=== PATIENT | female | born 1940 | race Caucasian/White ===

== ENCOUNTER 2018-11-06 08:50 | Inpatient (IN) ==
--- NOTE | 2018-10-29 14:21 | Anesthesiology Consultation ---
Date of Service October 29, 2018 Assessment & Plan (1) Encounter for pre-operative examination: Chart Review Chart Review: Acceptable Risk for Surgery and Patient seen in Pre Admission Testing Teaching & Discussion Instructed NPO after midnight before surgery, except medications with 15 cc of water. Medication instructions provided according to the PAT guidelines. History Surgery Operation Date: 11/06/18 10:05 Proposed Procedures p L3-L5 Decompression and Fusion, Spinal Cord Monitoring - Solomon Terry DO Height/Weight Height: 5 ft 4.5 in Weight: 64.864 kg Allergies Allergy/AdvReac Type Severity Reaction Status Date / Time cefaclor Allergy Intermediate HIVES Verified 10/25/18 14:17 morphine Allergy Intermediate PROJECTILE Unverified 10/25/18 14:17 VOMITTING oxycodone Allergy Intermediate N/V Verified 10/25/18 14:17 Penicillins Allergy Intermediate SWELLING Verified 10/25/18 14:17 red dye Allergy Intermediate hives Verified 10/25/18 14:17 shellfish derived Allergy Intermediate Hives Verified 10/25/18 14:17 hydrocodone Allergy Mild N/V Verified 10/25/18 14:17 meperidine Allergy Unknown WAS TOLD Verified 10/25/18 14:17 NEVER TO TAKE IT FOOD ALLERGY Allergy Intermediate Hives Uncoded 10/25/18 14:17 MEDICAL GRADE GLUE Allergy Intermediate VEIN Uncoded 10/25/18 14:21 IRRITATION, RED/SWOLLEN Medications Home Medications Medication Instructions Recorded Confirmed Last Taken carisoprodol 250 mg PO BID 10/25/18 10/25/18 Unknown cetirizine [Zyrtec] 10 mg PO QAM 10/25/18 10/25/18 Unknown fluticasone propionate [Flonase 1 spray INTRANASAL DAILY 10/25/18 10/25/18 Unknown Allergy Relief] levothyroxine 25 mcg PO QAM 10/25/18 10/25/18 Unknown montelukast [Singulair] 10 mg PO PM 10/25/18 10/25/18 Unknown acetaminophen [Tylenol Extra 500 mg PO Q6H PRN 10/29/18 10/29/18 Unknown Strength] Past Medical History Medical History Environmental and seasonal allergies Hypothyroidism Osteoporosis Spinal stenosis Exercise / Class Metabolic Activity II 4-5 Yardwork/Stairs/Walk up hill (Denies CP or SOB with stairs but currently very limited by back pain (has been x 2 wks)) Past Family History Family History Grandmother (Paternal) Family history of diabetes mellitus Past Surgical History Surgical History H/O shoulder surgery RT History of appendectomy History of breast augmentation IMPLANTS REMOVAL AFTER RUPTURE History of cataract surgery RT/LEFT History of colonoscopy History of herniorrhaphy History of laparoscopy History of tooth extraction History of total abdominal hysterectomy and bilateral salpingo-oophorectomy History of total knee replacement RT Status post ablation of incompetent vein using laser 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 History of PONV No Hx of Motion Sickness and History of PONV (2/2 narcotics (see adverse reactions above)) Social History Smoking Status: Former smoker Do You Dip or Chew Tobacco: No Smoking End Date: QUIT 2004 Hx Alcohol Use: No Hx Substance Use: No substance use type: does not use Review of Systems Pt denies any recent chest pain, shortness of breath, palpitations, cough, fever or URI. Physical Exam Vital Signs BP: 104/58 P: 91bpm SPO2: 95% RA T: 97.9 F R: 16 ENMT Mouth: + dentures (partial lower) and + dental restorations (several caps and crowns); no chipped teeth and no loose teeth Thyromental Distance: < 3.5 Finger Breadths (3) Mallampati Class: I Neck normal visual inspection; neck extension not limited Respiratory normal respiratory effort Auscultation: lungs clear to auscultation bilaterally Cardiovascular Rate/Rhythm: regular rate and regular rhythm Heart Sounds: no murmur Vessels: no carotid bruit Extremities: no edema Testing Laboratory Results 10/29/18 14:30 10/29/18 14:30 10/29/18 10/29/18 10/29/18 14:30 14:30 14:30 PT 9.9 INR 1.0 APTT 26.2 Urine Color Yellow Urine Appearance Clear Urine pH 6.5 Ur Specific [place] 1.011 Urine Protein Negative Urine Glucose (UA) Negative Urine Ketones Negative Urine Nitrite Negative Ur Leukocyte Esterase Negative Blood Type O Positive Antibody Screen NEGATIVE Electrocardiogram Date: 10/29/18 Findings: + NSR @ (77) Low voltage QRS. Nonspecific T wave abnormality. No significant change from 01/12/10. Chest X-Ray Date: 10/29/18 Findings: + NAD
--- NOTE | 2018-10-29 14:23 | PAT Medication Instructions ---
Medication Instructions Date of Service October 29, 2018 Home Medications carisoprodol 250 mg PO BID cetirizine [Zyrtec] 10 mg PO QAM fluticasone propionate [Flonase Allergy Relief] 1 spray INTRANASAL DAILY levothyroxine 25 mcg PO QAM montelukast [Singulair] 10 mg PO PM acetaminophen [Tylenol Extra Strength] 500 mg PO Q6H PRN DO NOT take the morning of surgery cetirizine [Zyrtec] 10 mg PO QAM Take morning of surgery With a small sip of water, OTHERWISE NOTHING TO EAT OR DRINK AFTER MIDNIGHT: carisoprodol 250 mg PO BID fluticasone propionate [Flonase Allergy Relief] 1 spray INTRANASAL DAILY levothyroxine 25 mcg PO QAM acetaminophen [Tylenol Extra Strength] 500 mg PO Q6H PRN (if needed, may be taken up to four hours before surgery) Take evening before surgery carisoprodol 250 mg PO BID montelukast [Singulair] 10 mg PO PM acetaminophen [Tylenol Extra Strength] 500 mg PO Q6H PRN (if needed) Other Notes If you have any questions please call us at [phone] or [phone] or [phone] or [phone]
--- NOTE | 2018-10-29 15:02 | XRay Report ---
XR chest Pre-admission PA/Lat HISTORY: Preop. COMPARISON: None. FINDINGS: The lungs are clear. Cardiac silhouette is normal in size. No pleural effusions. No pneumot horax. Old, healed sternal fracture. IMPRESSION: No acute process. Electronically signed by: Almas Pop M.D. 10/29/2018 3:01 PM
[2018-10-29 15:12] LABS: Basophils # (auto) 0.04 K/uL (0-0.2); Basophils % (auto) 0.6 %; Eosinophils # (auto) 0.15 K/uL (0-0.5); Eosinophils % (auto) 2.3 %; Hematocrit (blood only) 38.4 % (37-47); Hemoglobin 13.1 g/dL (12.0-16.0); Immature Granulocytes # (auto) 0.01 K/uL (0.00-0.02); Immature Granulocytes % (auto) 0.2 %; Lymphocytes # (auto) 2.73 K/uL (1.2-3.4); Lymphocytes % (auto) 42.5 %; Mean Corpuscular Hgb Conc 34.1 g/dL (32-36); Mean Corpuscular Volume 89.9 fL (80-100); Mean Platelet Volume 8.1 fL (7.4-10.4); Monocytes # (auto) 0.53 K/uL (0.11-0.59); Monocytes % (auto) 8.3 %; Neutrophils # (auto) 2.96 K/uL (1.4-6.5); Neutrophils % (auto) 46.1 %; Platelet Count 264 K/uL (130-400); RDW Coefficient of Variation 12.8 % (11.5-14.5); RDW Standard Deviation 41.8 fL (36.4-46.3); Red Blood Count 4.27 M/uL (4.2-5.4); White Blood Count 6.42 K/uL (4.8-10.8)
[2018-10-29 15:16] LABS: Appearance Urine Clear (Clear); Bilirubin Urine Negative (Negative); Blood Urine Negative (Negative); Color Urine Yellow; Glucose Urine UA Negative (Negative); Ketones Urine Negative (Negative); Leukocyte Esterase Urine Negative (Negative); Nitrite Urine Negative (Negative); Protein Urine Negative (Negative); Specific Gravity Urine 1.011 (1.000-1.030); Urobilinogen Urine Negative (Negative); pH Urine 6.5 (4.5-7.5)
[2018-10-29 15:25] LABS: Partial Thromboplastin Time 26.2 Seconds (21.0-31.0); Prothrombin Time 9.9 Seconds (9.0-12.0)
[2018-10-29 16:41] LABS: Potassium 3.7 mmol/L (3.5-5.1)
[2018-10-29 16:42] LABS: BUN Creatinine Ratio 9.2 (10-20); Calcium 8.9 mg/dl (8.5-10.1); Creatinine Clr Calc Pharmacy 40.9 ml/min; Est GFR (African American) 62.5; Est GFR (Non-African American) 53.9
[~2018-11-06 08:50] MED LIST: ACETAMINOPHEN 500 MG TAB PO SCH; CLINDAMYCIN 600 MG/54 ML BAG IV SCH; GABAPENTIN 300 MG PO SCH; HYDROmorphone INJ 2 MG/ML SYR/VIAL ONE; LR 15ML/HR IV SCH; MIDAZOLAM HCL 1 MG/ML 2ML VIAL ONE; fentaNYL citrate 100 MCG/2 ML VIAL ONE
[2018-11-06] MEDS ORDERED: HYDROmorphone INJ 1 MG/ML SYRINGE IV PRN (10:05)
[2018-11-06] MEDS ORDERED: ePHEDrine sulfate 50 MG/ML AMP IV PRN (10:05)
[2018-11-06] MEDS ORDERED: ONDANSETRON INJ 2 MG/ML 2 ML VIAL IV PRN (10:05)
[2018-11-06] MEDS ORDERED: ATROPINE SULFATE 0.1 MG/ML 10ML SYR IV PRN (10:05)
[2018-11-06] MEDS ORDERED: fentaNYL citrate 100 MCG/2 ML VIAL IV PRN (10:05)
--- NOTE | 2018-11-06 10:09 | History & Physical Bridge Note ---
Date of Service November 06, 2018 History & Physical Bridge Note I have examined the patient, reviewed the History & Physical and in the interval since the performance of the History & Physical I have noted the following changes of clinical significance: no changes noted
--- NOTE | 2018-11-06 10:10 | History & Physical Report ---
Date of Service November 06, 2018 Assessment & Plan (1) Spinal stenosis, lumbar region with neurogenic claudication: L3-L5 decompression and fusion Present on Admission?: Yes History of Present Illness Chief Complaint: Back and bilateral leg pain Primary Care Provider: Kennedy Messina This is a 78-year-old female who presents with worsening back and bilateral leg pain failing extensive course of nonoperative care she is here for surgical intervention. Allergies Allergy/AdvReac Type Severity Reaction Status Date / Time cefaclor Allergy Intermediate HIVES Verified 11/06/18 09:17 Penicillins Allergy Intermediate SWELLING Verified 11/06/18 09:17 red dye Allergy Intermediate hives Verified 11/06/18 09:17 shellfish derived Allergy Intermediate Hives Verified 11/06/18 09:17 hydrocodone Allergy Mild N/V Verified 11/06/18 09:17 meperidine Allergy Unknown WAS TOLD Verified 11/06/18 09:17 NEVER TO TAKE IT apple Allergy Hives Verified 11/06/18 09:17 broccoli Allergy Hives Verified 11/06/18 09:17 grape Allergy Hives Verified 11/06/18 09:17 morphine AdvReac Intermediate PROJECTILE Verified 11/06/18 09:25 VOMITTING oxycodone AdvReac Intermediate N/V Verified 11/06/18 09:17 MEDICAL GRADE GLUE Allergy Intermediate VEIN Uncoded 11/06/18 09:17 IRRITATION, RED/SWOLLEN mesquite trees Allergy Intermediate Unknown Uncoded 11/06/18 09:17 Home Medications Home Medications Medication Instructions Recorded Confirmed Type carisoprodol 250 mg PO BID 10/25/18 11/06/18 History cetirizine [Zyrtec] 10 mg PO QAM 10/25/18 11/06/18 History fluticasone propionate [Flonase 1 spray INTRANASAL DAILY 10/25/18 11/06/18 History Allergy Relief] levothyroxine 25 mcg PO QAM 10/25/18 11/06/18 History montelukast [Singulair] 10 mg PO PM 10/25/18 11/06/18 History acetaminophen [Tylenol Extra 500 mg PO Q6H PRN 10/29/18 11/06/18 History Strength] docusate sodium [Stool Softener] 100 mg PO DAILY PRN 11/06/18 11/06/18 History Past Med/Surg History Medical History Environmental and seasonal allergies Hypothyroidism Osteoporosis Spinal stenosis Surgical History H/O shoulder surgery RT History of appendectomy History of breast augmentation IMPLANTS REMOVAL AFTER RUPTURE History of cataract surgery RT/LEFT History of colonoscopy History of herniorrhaphy History of laparoscopy History of tooth extraction History of total abdominal hysterectomy and bilateral salpingo-oophorectomy History of total knee replacement RT Status post ablation of incompetent vein using laser 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 Family History Grandmother (Paternal) Family history of diabetes mellitus Social History Preferred Language: Italian Communication Ability: Effective Meal Room Hand Required: No Beliefs That Will Affect Care: None Current Living Situation: Spouse Other Information That Helps Us Care for You: No Feels Safe at Home: Yes Safety Concerns: Feels Safe At This Time Smoking Status: Former smoker Do You Dip or Chew Tobacco: No Smoking End Date: QUIT 2004 Second Hand Exposure: No Tobacco Cessation Education Requested by Patient: No Hx Alcohol Use: No Hx Substance Use: No Physical Exam Physical Exam: Patient is alert and oriented neurologically intact Results & Data Vital Signs (Past 12 Hours) Vital Signs Temp Pulse Resp BP Pulse Ox 11/06/18 09:21 36.7 C 82 18 155/83 H 96
[2018-11-06] MEDS ORDERED: ONDANSETRON INJ 2 MG/ML 2 ML VIAL ONE ×2 (10:25→11:21)
[2018-11-06] MEDS ORDERED: ROCURONIUM BROMIDE 10 MG/ML 5 ML VIAL ONE (10:25)
[2018-11-06] MEDS ORDERED: LIDOCAINE HCL 2% 2 ML VIAL/AMP(20MG/ML) INFIL ONE (10:25)
[2018-11-06] MEDS ORDERED: GLYCOPYRROLATE 0.2 MG/ML VIAL ONE (10:25)
[2018-11-06] MEDS ORDERED: PROPOFOL IV EMULSION 10 MG/ML 20 ML VIAL IV ONE (10:25)
[2018-11-06] MEDS ORDERED: NEOSTIGMINE METHYLSULFATE 1 MG/ML 10ML VIAL ONE (10:25)
[2018-11-06] MEDS ORDERED: DEXAMETHASONE SOD INJ 4 MG/ML VIAL ONE (10:25)
[2018-11-06] MEDS ORDERED: HYDROmorphone INJ 2 MG/ML SYR/VIAL ONE (10:26)
[2018-11-06] MEDS ORDERED: BUPIVACAINE/EPINEPHRINE 0.5% MPF 1:200,000 30 ML VIAL ONE (10:26)
[2018-11-06] MEDS ORDERED: BACITRACIN INJ 50,000 UNIT VIAL ONE (10:27)
[2018-11-06] MEDS ORDERED: fentaNYL citrate 100 MCG/2 ML VIAL ONE ×3 (10:59→11:47)
[2018-11-06] MEDS ORDERED: PHENYLEPHRINE 100MCG/ML 5ML SYR ONE (11:20)
[2018-11-06] MEDS ORDERED: raNITIdine HCl 25 MG/ML VIAL IV ONE (11:21)
[2018-11-06] MEDS ORDERED: METOCLOPRAMIDE HCL INJ 5 MG/ML 2 ML VIAL ONE (11:21)
[2018-11-06] MEDS ORDERED: FLOSEAL HEMOSTATIC MATRIX 10ML TOP ONE (12:27)
--- NOTE | 2018-11-06 12:34 | Operative Report ---
Post Operative Report Pre & Post Diagnosis Operation Date: 11/06/18 10:25 Pre-Op Diagnosis: L3-L5 spinal stenosis, lumbar region with neurogenic claudication Post-Op Diagnosis: L3-L5 spinal stenosis, lumbar region with neurogenic claudication Procedure Operation Date: 11/06/18 10:25 Actual Procedures #1 lumbar decompression with bilateral medial facetectomies foraminotomies L3-4 L4-5. #2 posterior spinal fusion L3-4 L4-5 per #3 placement posterior instrumentation L3-4 L4-5 using globus. #4 interbody fusion L4-5 per #5 placement of peek cage 9 x 22 mm L4-5. #6 placement of local autograft in the posterior lateral gutters per #7 placement Feese collagen sponge combined with master graft in the posterior lateral gutters and ostial amp and interbody space. Surgeon Solomon Terry DO Twister Tender Paper Karla Moralez Estimated Blood Loss 175 Findings Consistent with Post-Op Diagnosis Specimens None Indications This is a 78-year-old female presents with back and bilateral leg pain. After failing extensive course of nonoperative care she is here for surgical intervention. Description of Procedure Patient was met with identified and informed consent obtained. She was then taken to the operative suite underwent intubation placed in the prominences well-padded eyes inspected to ensure no external pressure placed upon the. This point the lumbar spine is prepped and draped in a normal sterile fashion. Sharp dissection with the assistance of Bovie cautery was performed down to and exp osing the lamina transverse processes of L3-L4-L5 bilaterally. From a caudal cephalad fashion complete laminectomy of L4 and L3 was performed including bilateral medial facetectomies and foraminotomies addressing severe spinal stenosis. Pedicle fusion and placed in L3-L4-L5 bilaterally with assistance of fluoroscopy the appropriate size josie placed. By way of a transforaminal approach on the right complete discectomy was performed in plate graded to subcortical mean bone and a 9 x 22 mm peek cage filled with ostium bone graft tapped in position. The rods were then locked in final position bilaterally. The transverse processes of L3 L4-5 bur to subcortical bleeding bone. Infuse collagen sponge mass graft local autograft placed in the posterior lateral gutters. 15 round JESSE drain inserted. Incision was then closed with 1 Vicryl in the fascia 2-0 Vicryl subcutaneous layer and 4 Monocryl for final skin closure. Steri-Strip sterile dressings placed. Patient will continue PACU stable condition. Please note Karla Moralez present at the entire procedure involved the patient positioning complex portions of the surgery and final skin closure. Lastly spinal cord monitoring was utilized as noted. I attest to the content of the Intraoperative Record and any orders documented therein. Any exceptions are noted below.
--- NOTE | 2018-11-06 12:37 | Fluoroscopy Report ---
FL lumbar spine 2-3V HISTORY: 78 years-old Female L3-L5 D/F status post fusion of the lumbar spine COMPARISON: None available TECHNIQUE: 2 spot fluoroscopic images of the lumbar spine were obtained utilizing 17.1 seconds fluoro scopy time FINDINGS: Laminectomy with posterior interbody josie and screw fusion noted at L3-L5 with discectomy changes at L 4-L5. Alignment appears satisfactory and the hardware appears intact. Multilevel disc space narrowing with spondylitic spurring. IMPRESSION: Fluoroscopic assistance as above. Please see operative report for further details. The above report was generated using voice recognition software. It may contain grammatical, syntax o r spelling errors. Electronically signed by: Chi Butler M.D. 11/06/2018 12:36 PM
--- NOTE | 2018-11-06 13:36 | Anesthesiology Progress Note ---
Date of Service November 06, 2018 Anesthesia Post Procedure Vital Signs Vital Signs: Temp Pulse Pulse Resp BP Pulse Ox 11/06/18 13:20 65 12 136/59 L 96 11/06/18 13:10 70 11 L 136/75 97 11/06/18 13:00 79 13 135/72 96 11/06/18 12:50 36.6 C 74 12 152/98 H 97 11/06/18 09:21 36.7 C 82 18 155/83 H 96 Transfer of Care Handoff Completed per policy Notes Mental Status: alert / awake / arousable and participated in evaluation Patient Amnestic to Procedure: Yes Nausea / Vomiting: adequately controlled Pain: adequately controlled Airway Patency, RR, SpO2: stable & adequate BP & HR: stable & adequate Hydration State: stable & adequate Anesthetic Complications: no major complications apparent and Pt Satisfied with anesthetic care
[2018-11-06] MEDS ORDERED: FAMOTIDINE 20 MG TAB PO PRN (14:32)
[2018-11-06] MEDS ORDERED: DO NOT ADMINISTER PNEUMOCOCCAL VACCINE PRN (14:32)
[2018-11-06] MEDS ORDERED: ALUMINUM/MAGNESIUM SUSP 30 ML UDC PO PRN (14:32)
[2018-11-06] MEDS ORDERED: BISACODYL 10 MG SUPP PR PRN (14:32)
[2018-11-06] MEDS ORDERED: ACETAMINOPHEN 1,000 MG/100 ML VIAL IV PRN (14:32)
[2018-11-06] MEDS ORDERED: DO NOT ADMINISTER FLU VACCINE PRN (14:32)
[2018-11-06] MEDS ORDERED: HYDROmorphone INJ 0.5 MG/0.5 ML SYR IV PRN (14:32)
[2018-11-06] MEDS ORDERED: METOCLOPRAMIDE HCL INJ 5 MG/ML 2 ML VIAL IV PRN (14:32)
[2018-11-06] MEDS ORDERED: LORazepam 0.5 MG/1 ML VIAL IV PRN (14:32)
[2018-11-06] MEDS ORDERED: LORazepam 0.5 MG TAB PO PRN (14:32)
[2018-11-06] MEDS ORDERED: DOCUSATE SODIUM 100 MG CAP PO PRN (14:32)
[2018-11-06] MEDS ORDERED: PROMETHAZINE HCL 12.5 MG in SODIUM CHLORIDE 0.9% 50 ML IV PRN (14:32)
[2018-11-06] MEDS ORDERED: MAGNESIUM HYDROXIDE SUSP 30 ML UDC PO PRN (14:32)
[2018-11-06] MEDS ORDERED: ACETAMINOPHEN 500 MG TAB PO PRN (14:32)
[2018-11-06] MEDS ORDERED: SOD PHOSPHATE/SOD BIPHOSPHATE ENEMA 132 ML BTL PR PRN (14:32)
[2018-11-06] MEDS ORDERED: ONDANSETRON 4 MG TAB PO PRN (14:32)
--- NOTE | 2018-11-06 15:47 | Consultation ---
Date of Consultation November 06, 2018 Assessment & Plan (1) Status post lumbar surgery: Post op day# 0 S/P L3-L5 decompression & fusion by Dr Terry Post op pain controlled EBL#175 ml -pain management per ortho -wound management per ortho -PT/OT as appropriate -DVT prophylaxis per ortho -incentive spirometry -monitor H&H for acute blood loss anemia (2) Hypothyroidism: -Continue levothyroxine (3) Environmental and seasonal allergies: -Continue Singulair, Zyrtec DVT Prophylaxis -SCDs per ortho Full Code as per discussion with pt Follows with Dr Kennedy Messina for routine care Pt was seen and care coordinated with Dr Castro. See addendum Pt will be followed by Dr Aguilar starting 11/07/18 Thank you for this consultation. We will follow the patient with you during their hospital stay. You can reach a member of the [facility] Hospitalist Team 18/12 via pager @ [phone]. Supervising Physician Co-Signing Physician Notes Patient is a 78-year-old female with history of hypothyroidism, spinal stenosis, Seasonal allergies and other problems who underwent L3-L5 decompression fusion by Dr. Terry was seen and examined postop. Patient had an episode of vomiting postop. Reports associated dizziness during the episode of vomiting which currently resolved. Denies any aspiration. Currently doing well. Denies any chest pain, shortness of breath, abdominal pain, cough. Back pain at surgical site is controlled. On exam patient is moderately built and nourished, no apparent distress, normocephalic atraumatic, lungs are clear to auscultation, S1-S2, no murmur, back-surgical site in dressing,+ drain, no pedal edema, grossly no focal neurological deficits. Monitor for postop anemia. DVT prophylaxis, wound care and activity as per primary team. Bowel regimen to prevent constipation. I personally reviewed the record. Patient is interviewed and examined at bedside. Patient's care is coordinated with Shaina Nino PA-C. Please refer to the documentation above for details of patient's presentation and for discussion of other issues. History of Present Illness Reason for Consultation: Postop medical management Attending Physician: Solomon Terry DO History of Present Illness Pt is 78 y/o F with PMH hypothyroidism, allergic rhinitis, osteoporosis, spinal stenosis seen in medical consultation S/P L3-L5 decompression and fusion today by Dr. Terry. Post op pt reports fatigue. Denies any pain currently. Denies leg paresthesias. Has Davis cath in place. Denies N/V. Reports BM this am prior to procedure, hasn't felt like had flatus yet post op. Denies fever/chills, diaphoresis, YOUNG, dizziness, vision changes, neck pain, CP, SOB, orthopnea, palpitations, cough, sore throat, choking, abdominal pain, paresthesias. Allergies Allergy/AdvReac Type Severity Reaction Status Date / Time cefaclor Allergy Intermediate HIVES Verified 11/06/18 09:17 Penicillins Allergy Intermediate SWELLING Verified 11/06/18 09:17 red dye Allergy Intermediate hives Verified 11/06/18 09:17 shellfish derived Allergy Intermediate Hives Verified 11/06/18 09:17 hydrocodone Allergy Mild N/V Verified 11/06/18 09:17 meperidine Allergy Unknown WAS TOLD Verified 11/06/18 09:17 NEVER TO TAKE IT apple Allergy Hives Verified 11/06/18 09:17 broccoli Allergy Hives Verified 11/06/18 09:17 grape Allergy Hives Verified 11/06/18 09:17 morphine AdvReac Intermediate PROJECTILE Verified 11/06/18 09:25 VOMITTING oxycodone AdvReac Intermediate N/V Verified 11/06/18 09:17 MEDICAL GRADE GLUE Allergy Intermediate VEIN Uncoded 11/06/18 09:17 IRRITATION, RED/SWOLLEN mesquite trees Allergy Intermediate Unknown Uncoded 11/06/18 09:17 Home Medications Home Medications Medication Instructions Recorded Confirmed Type carisoprodol 250 mg PO BID 10/25/18 11/06/18 History cetirizine [Zyrtec] 10 mg PO QAM 10/25/18 11/06/18 History fluticasone propionate [Flonase 1 spray INTRANASAL DAILY 10/25/18 11/06/18 History Allergy Relief] levothyroxine 25 mcg PO QAM 10/25/18 11/06/18 History montelukast [Singulair] 10 mg PO PM 10/25/18 11/06/18 History acetaminophen [Tylenol Extra 500 mg PO Q6H PRN 10/29/18 11/06/18 History Strength] docusate sodium [Stool Softener] 100 mg PO DAILY PRN 11/06/18 11/06/18 History Patient History Medical History Environmental and seasonal allergies (Chronic) Hypothyroidism (Chronic) Osteoporosis (Chronic) Spinal stenosis (Chronic) Surgical History History of cataract surgery (Chronic) RT/LEFT History of tooth extraction (Chronic) History of appendectomy (Chronic) History of laparoscopy (Chronic) History of total abdominal hysterectomy and bilateral salpingo-oophorectomy (Chronic) History of herniorrhaphy (Chronic) History of colonoscopy (Chronic) History of total knee replacement (Chronic) RT H/O shoulder surgery (Chronic) RT History of breast augmentation (Chronic) IMPLANTS REMOVAL AFTER RUPTURE Status post ablation of incompetent vein using laser (Chronic) 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 Family History Grandmother (Paternal) Family history of diabetes mellitus Social History Preferred Language: Azeri Communication Ability: Effective Inspector Missile Required: No Beliefs That Will Affect Care: None Current Living Situation: Spouse Other Information That Helps Us Care for You: No Feels Safe at Home: Yes Safety Concerns: Feels Safe At This Time Smoking Status: Former smoker Do You Dip or Chew Tobacco: No Smoking End Date: QUIT 2004 Second Hand Exposure: No Tobacco Cessation Education Requested by Patient: No Hx Alcohol Use: No Hx Substance Use: No Review of Systems Review of Systems: All systems reviewed & are unremarkable except as noted in HPI & below Physical Exam Physical Exam: General: no acute distress, Pt sleepy, WDWN Head: normocephalic, atraumatic Eyes: EOM's intact, conjunctiva non-injected, anicteric ENT: normal inspection external ears, nose, mucous membranes moist Neck: supple, trachea midline Lungs: clear, no respiratory distress CV: RRR, no murmur, no pretibial edema Abd: normal BS, soft, non-tender Ext: no cyanosis, no calf tenderness; bilateral pedal pulls and pushes intact, distal pulses intact, sensation to light touch intact Neuro: A&O x 3, no focal deficits noted, normal affect Skin: warm, dry Results & Data Vital Signs (Past 12 Hours) Vital Signs Temp Pulse Pulse Pulse Resp BP Pulse Ox 11/06/18 15:19 35.8 C L 66 16 107/69 93 11/06/18 14:39 58 L 18 124/74 93 11/06/18 14:10 36.4 C L 75 18 135/81 93 11/06/18 13:40 36.1 C L 63 14 119/61 95 11/06/18 13:30 36.1 C L 65 12 137/63 94 11/06/18 13:20 65 12 136/59 L 96 11/06/18 13:10 70 11 L 136/75 97 11/06/18 13:00 79 13 135/72 96 11/06/18 12:50 36.6 C 74 12 152/98 H 97 11/06/18 09:21 36.7 C 82 18 155/83 H 96
[2018-11-06] MEDS: ONDANSETRON INJ 2 MG/ML 2 ML VIAL IV PRN (16:17)
[2018-11-06] MEDS: CLINDAMYCIN 600 MG in DEXTROSE 5% 50 ML IV SCH (17:36)
[2018-11-06] MEDS: LACTATED RINGER'S 1,000 ML IV SCH (17:36)
[2018-11-06] MEDS: DOCUSATE SODIUM/SENNA 50/8.6MG TAB PO SCH (20:03)
[2018-11-06] MEDS: MONTELUKAST SODIUM 10 MG TABLET PO SCH (20:03)
[2018-11-07] MEDS: CLINDAMYCIN 600 MG in DEXTROSE 5% 50 ML IV SCH (01:37)
[2018-11-07] MEDS: POLYETHYLENE (MIRALAX) 17 GM PACK PO SCH ×3 (05:51→18:33)
[2018-11-07] MEDS: LEVOTHYROXINE SODIUM 25 MCG TABLET PO SCH (05:52)
[2018-11-07] MEDS: LACTATED RINGER'S 1,000 ML IV SCH (05:55)
[2018-11-07] MEDS: ACETAMINOPHEN 500 MG TAB PO PRN ×2 (06:22→20:10)
[2018-11-07 06:42] LABS: Basophils # (auto) 0.01 K/uL (0-0.2); Basophils % (auto) 0.1 %; Hematocrit (blood only) 31.7 % (37-47); Hemoglobin 10.9 g/dL (12.0-16.0); Immature Granulocytes # (auto) 0.05 K/uL (0.00-0.02); Immature Granulocytes % (auto) 0.3 %; Lymphocytes # (auto) 2.31 K/uL (1.2-3.4); Lymphocytes % (auto) 13.8 %; Mean Corpuscular Hgb Conc 34.4 g/dL (32-36); Mean Corpuscular Volume 90.1 fL (80-100); Monocytes # (auto) 1.52 K/uL (0.11-0.59); Monocytes % (auto) 9.1 %; Neutrophils # (auto) 12.84 K/uL (1.4-6.5); Neutrophils % (auto) 76.7 %; Platelet Count 223 K/uL (130-400); RDW Coefficient of Variation 13.4 % (11.5-14.5); RDW Standard Deviation 44.2 fL (36.4-46.3); Red Blood Count 3.52 M/uL (4.2-5.4); White Blood Count 16.73 K/uL (4.8-10.8)
[2018-11-07 07:17] LABS: BUN Creatinine Ratio 13.6 (10-20); Calcium 8.6 mg/dl (8.5-10.1); Creatinine Clr Calc Pharmacy 50.9 ml/min; Est GFR (Non-African American) 63.8; Potassium 4.1 mmol/L (3.5-5.1)
--- NOTE | 2018-11-07 08:07 | Anesthesiology Progress Note ---
Date of Service November 07, 2018 Anesthesia Post Procedure Vital Signs Vital Signs: Temp Pulse Pulse Pulse Pulse Resp BP 11/07/18 02:43 36.9 C 98 H 16 114/70 11/06/18 23:32 36.5 C 90 16 127/70 11/06/18 22:41 106 H 11/06/18 22:25 36.4 C L 100 H 20 136/80 11/06/18 19:26 36.3 C L 88 16 113/71 11/06/18 17:27 36.2 C L 83 16 116/76 11/06/18 16:25 36.3 C L 88 16 149/80 H 11/06/18 15:19 35.8 C L 66 16 107/69 11/06/18 14:39 58 L 18 124/74 11/06/18 14:10 36.4 C L 75 18 135/81 11/06/18 13:40 36.1 C L 63 14 119/61 11/06/18 13:30 36.1 C L 65 12 137/63 11/06/18 13:20 65 12 136/59 L 11/06/18 13:10 70 11 L 136/75 11/06/18 13:00 79 13 135/72 11/06/18 12:50 36.6 C 74 12 152/98 H 11/06/18 09:21 36.7 C 82 18 155/83 H Pulse Ox 11/07/18 02:43 92 11/06/18 23:32 94 11/06/18 22:41 94 11/06/18 22:25 93 11/06/18 19:26 96 11/06/18 17:27 94 11/06/18 16:25 95 11/06/18 15:19 93 11/06/18 14:39 93 11/06/18 14:10 93 11/06/18 13:40 95 11/06/18 13:30 94 11/06/18 13:20 96 11/06/18 13:10 97 11/06/18 13:00 96 11/06/18 12:50 97 11/06/18 09:21 96 Notes Mental Status: alert / awake / arousable and participated in evaluation Patient Amnestic to Procedure: Yes Nausea / Vomiting: adequately controlled Pain: adequately controlled Airway Patency, RR, SpO2: stable & adequate BP & HR: stable & adequate Hydration State: stable & adequate Anesthetic Complications: no major complications apparent and Pt Satisfied with anesthetic care
--- NOTE | 2018-11-07 08:08 | Orthopedic Progress Note ---
Date of Service November 07, 2018 Assessment & Plan (1) Spinal stenosis, lumbar region with neurogenic claudication: This time we will advance physical therapy today. Monitor JESSE output. Anticipate discharge home this weekend. Present on Admission?: Yes Subjective Patient's leg pain is improved. Back pain controlled. Physical Exam Physical Exam: On exam she is out of bed in a chair she is good strength testing. Results & Data Vital Signs (Past 12 Hours) Vital Signs Temp Pulse Pulse Resp BP Pulse Ox 11/07/18 02:43 36.9 C 98 H 16 114/70 92 11/06/18 23:32 36.5 C 90 16 127/70 94 11/06/18 22:41 106 H 94 11/06/18 22:25 36.4 C L 100 H 20 136/80 93
[2018-11-07] MEDS: TRAMADOL HCL 50 MG TABLET PO PRN ×4 (08:45→20:09)
[2018-11-07] MEDS: CETIRIZINE HCL 10 MG TABLET PO SCH (08:45)
[2018-11-07] MEDS: ONDANSETRON INJ 2 MG/ML 2 ML VIAL IV PRN (08:46)
[2018-11-07] MEDS: FLUTICASONE PROPIONATE NA SPR 16 GM BTL SCH (09:19)
--- NOTE | 2018-11-07 12:27 | Hospitalist Progress Note ---
Date of Service November 07, 2018 Assessment & Plan (1) Status post lumbar surgery: Post op day#1 S/P L3-L5 decompression & fusion by Dr Terry Post op pain controlled EBL#175 ml. JESSE drain of 185 mL to date -pain management per ortho -wound management per ortho -continue PT/OT -DVT prophylaxis per ortho -incentive spirometry -Post-op hgb 10.9 (pre-op 13.1). Continue to monitor (2) Hypothyroidism: Continue levothyroxine (3) Environmental and seasonal allergies: Continue Singulair, Zyrtec DVT Prophylaxis -SCDs per ortho Full Code as per discussion with pt Follows with Dr Kennedy Messina for routine care Pt was seen and care coordinated with Dr. Aguilar. See addendum Thank you for this consultation. We will follow the patient with you during their hospital stay. You can reach a member of the [facility] Hospitalist Team 18/12 via pager @ [phone]. 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 #2 posterior spinal fusion L3-4 L4-5 per #3 placement posterior instrumentation L3-4 L4-5 using globus. #4 interbody fusion L4-5 per #5 placement of peek cage 9 x 22 mm L4-5. #6 placement of local autograft in the posterior lateral gutters per #7 placement Feese collagen sponge combined with master graft in the posterior lateral gutters and ostial amp and interbody space.) Patient on exam sitting up in chair playing cards with her denies bowel movement since the procedure has been having issues keeping down food General: no acute distress Lungs: clear to ascultation bilaterally Heart: regular rate and rhythm Abdomen: soft, nontender, positive bowel sounds Extremities: no edema Back: has JESSE drain with serosanguinous fluid. At this time will continue current pain medications ad antiemetics. expect that patient will have bowel movement eventually but may increase bowel regimen to prevent ileus Continue medical recommendations and plans as documented by hospitalist physician academic affairs assistant. orthopedic team is the primary medical team for the patient Subjective Patient seen and examined while in bedside chair. Feels well today and was able to participate in therapy ambulating in the halls with walker. Denies any surgical site pain or numbness in lower extremities. [place] nauseated last evening and had vomiting episode. Tolerated a small breakfast today, is receiving Zofran PRN. No vomiting today. + Flatus but no BM yet. Denies fever, chills, lightheadedness, headache, chest pain, shortness of breath, abdominal pain, dysuria or lower extremity swelling. Review of Systems Review of Systems: At least ten systems reviewed and negative except as noted in the HPI. Physical Exam Physical Exam: General Appearance: WD/WN, no apparent distress, resting comfortably in bedside chair Head: normocephalic, atraumatic Eyes: normal inspection, PERRL, EOMI ENT: hearing grossly normal, pharynx normal (moist mucous membranes) Neck: supple, no JVD, no adenopathy Respiratory/Chest: lungs clear to auscultation. No wheezes, rales or rhonci. No respiratory distress or accessory muscle use Cardiovascular: regular rate, rhythm, no murmur, normal peripheral pulses Abdomen/GI: normal bowel sounds, soft, non-tender to palpation : Davis catheter in place draining pale yellow urine Extremities/Musculoskelatal: Lumbosacral dressing clean, dry, intact. JESSE drain visualized. No calf tenderness, normal capillary refill, no pedal edema Neurologic/Psych: alert, normal mood/affect, oriented x 3 Skin: normal color, warm/dry Results & Data Vital Signs (Past 12 Hours) Vital Signs Temp Pulse Resp BP Pulse Ox 11/07/18 11:06 36.5 C 87 18 105/63 94 11/07/18 06:50 36.7 C 94 H 18 118/71 94 11/07/18 02:43 36.9 C 98 H 16 114/70 92 Laboratory Results Short CBC 11/07/18 Range/Units 06:14 WBC 16.73 H (4.8-10.8) K/uL Hgb 10.9 L (12.0-16.0) g/dL Hct 31.7 L (37-47) % Plt Count 223 (130-400) K/uL [facility] 11/07/18 06:14 Sodium 138 Potassium 4.1 Chloride 106 Carbon Dioxide 27 BUN 12 Creatinine 0.87 Glucose 121 H Calcium 8.6
[2018-11-07] MEDS ORDERED: LACTULOSE SYRUP 30 GM/45 ML UDP PO STA (14:48)
[2018-11-07] MEDS: DOCUSATE SODIUM/SENNA 50/8.6MG TAB PO SCH (20:09)
[2018-11-07] MEDS: MONTELUKAST SODIUM 10 MG TABLET PO SCH (20:09)
[2018-11-08] MEDS: POLYETHYLENE (MIRALAX) 17 GM PACK PO SCH ×4 (00:40→17:52)
[2018-11-08] MEDS: TRAMADOL HCL 50 MG TABLET PO PRN ×5 (00:45→23:21)
[2018-11-08 05:47] LABS: Hematocrit (blood only) 30.6 % (37-47); Hemoglobin 10.2 g/dL (12.0-16.0); Mean Corpuscular Hgb Conc 33.3 g/dL (32-36); Mean Corpuscular Volume 91.3 fL (80-100); Mean Platelet Volume 8.2 fL (7.4-10.4); Platelet Count 180 K/uL (130-400); RDW Coefficient of Variation 13.8 % (11.5-14.5); RDW Standard Deviation 45.6 fL (36.4-46.3); Red Blood Count 3.35 M/uL (4.2-5.4); White Blood Count 11.67 K/uL (4.8-10.8)
[2018-11-08 06:31] LABS: BUN Creatinine Ratio 16.6 (10-20); Calcium 8.5 mg/dl (8.5-10.1); Creatinine Clr Calc Pharmacy 58.3 ml/min; Est GFR (African American) 87.1; Est GFR (Non-African American) 75.1; Potassium 3.8 mmol/L (3.5-5.1)
[2018-11-08] MEDS: LEVOTHYROXINE SODIUM 25 MCG TABLET PO SCH (06:37)
[2018-11-08] MEDS: ACETAMINOPHEN 500 MG TAB PO PRN ×3 (06:41→23:21)
[2018-11-08] MEDS: FLUTICASONE PROPIONATE NA SPR 16 GM BTL SCH (08:28)
[2018-11-08] MEDS: CETIRIZINE HCL 10 MG TABLET PO SCH (08:28)
--- NOTE | 2018-11-08 14:06 | Orthopedic Progress Note ---
Date of Service November 08, 2018 Assessment & Plan (1) Spinal stenosis, lumbar region with neurogenic claudication: At this time we will continue physical therapy monitor her JESSE output anticipate discharge home this weekend. Present on Admission?: Yes Subjective Back pain is controlled leg symptoms markedly improved. Physical Exam Physical Exam: Patient is good strength testing appears comfortable. Results & Data Vital Signs (Past 12 Hours) Vital Signs Temp Pulse Resp BP Pulse Ox 11/08/18 06:42 36.5 C 89 16 107/72 93
[2018-11-08] MEDS: MONTELUKAST SODIUM 10 MG TABLET PO SCH (20:20)
[2018-11-08] MEDS: DOCUSATE SODIUM/SENNA 50/8.6MG TAB PO SCH (20:21)
--- NOTE | 2018-11-09 00:25 | Hospitalist Progress Note ---
Date of Service November 08, 2018 Assessment & Plan (1) Status post lumbar surgery: Doing well postoperatively. (2) Hypothyroidism: Continue levothyroxine. (3) DVT prophylaxis: Per Ortho protocol. (4) Encounter for consultation: Thank you for this consultation. We will follow the patient with you during their hospital stay. My cell # is [phone]. You can reach a member of the [facility] Medicine Team 18/12 via pager @ [phone]. Subjective Recheck for medical management. Pt seen in her room around 1400. visiting. Doing well postoperatively. No chest pain, cough, SOB, nausea, vomiting. Passing flatus, but no stool yet. Voiding without difficulty. Pain well-controlled. . Physical Exam Constitutional: no acute distress Respiratory: no respiratory distress Auscultation: lungs clear to auscultation bilaterally Cardiovascular: Rate/Rhythm: regular rate and regular rhythm Heart Sounds: no gallop, no murmur and no cardiac rub Vessels: no JVD Extremities: no calf tenderness and no edema Gastrointestinal (Abdomen): normal bowel sounds, soft, nontender, no hepatosplenomegaly Skin: no rashes, warm and dry Psychiatric: Orientation: alert and oriented x 3 Results & Data Vital Signs (Past 12 Hours) Vital Signs Temp Pulse Resp BP Pulse Ox 11/08/18 23:23 36.6 C 89 18 121/73 93 11/08/18 15:17 36.6 C 82 16 151/75 H 93 Laboratory Results Laboratory Results - last 24 hr 11/06/18 11/08/18 11/08/18 09:17 05:26 05:26 WBC 11.67 H RBC 3.35 L Hgb 10.2 L Hct 30.6 L MCV 91.3 MCH 30.4 MCHC 33.3 RDW Std Deviation 45.6 RDW Coeff of Kayla 13.8 Plt Count 180 MPV 8.2 Sodium 138 Potassium 3.8 Chloride 104 Carbon Dioxide 29 Anion Gap 6.0 BUN 13 Creatinine 0.76 Est Cr Clr Drug Dosing 58.3 Est GFR ( Amer) 87.1 Est GFR (Non-Af Amer) 75.1 BUN/Creatinine Ratio 16.6 Glucose 100 H Calcium 8.5 Crossmatch See Detail
[2018-11-09] MEDS: LEVOTHYROXINE SODIUM 25 MCG TABLET PO SCH (05:24)
[2018-11-09 06:05] LABS: Hematocrit (blood only) 28.5 % (37-47); Hemoglobin 9.5 g/dL (12.0-16.0); Mean Corpuscular Hgb Conc 33.3 g/dL (32-36); Mean Corpuscular Volume 91.3 fL (80-100); Mean Platelet Volume 8.1 fL (7.4-10.4); Platelet Count 186 K/uL (130-400); RDW Coefficient of Variation 13.7 % (11.5-14.5); RDW Standard Deviation 45.5 fL (36.4-46.3); Red Blood Count 3.12 M/uL (4.2-5.4); White Blood Count 9.39 K/uL (4.8-10.8)
[2018-11-09 06:40] LABS: BUN Creatinine Ratio 13.2 (10-20); Calcium 8.2 mg/dl (8.5-10.1); Creatinine Clr Calc Pharmacy 61.5 ml/min; Est GFR (Non-African American) 80.2; Potassium 3.8 mmol/L (3.5-5.1)
[2018-11-09] MEDS: ACETAMINOPHEN 500 MG TAB PO PRN ×3 (07:32→23:50)
[2018-11-09] MEDS: TRAMADOL HCL 50 MG TABLET PO PRN ×6 (07:32→23:49)
[2018-11-09] MEDS: FLUTICASONE PROPIONATE NA SPR 16 GM BTL SCH (07:33)
[2018-11-09] MEDS: CETIRIZINE HCL 10 MG TABLET PO SCH (07:33)
--- NOTE | 2018-11-09 10:35 | Orthopedic Progress Note ---
Date of Service November 09, 2018 Assessment & Plan (1) Spinal stenosis: This time we will initiate very modest activity today. Assess her in the a.m. determine whether she is fit to go home. Present on Admission?: Yes Subjective Patient is quite tired today. She denies any significant back pain. She denies any leg pain. She is very active yesterday. Bowels working well. Physical Exam Physical Exam: On exam she is in bed. She is neurologically intact. Results & Data Vital Signs (Past 12 Hours) Vital Signs Temp Pulse Pulse Resp BP Pulse Ox 11/09/18 06:10 37.0 C 90 16 112/70 93 11/08/18 23:23 36.6 C 89 18 121/73 93
[2018-11-09 10:53] LABS: Hematocrit (blood only) 28.4 % (37-47); Hemoglobin 9.5 g/dL (12.0-16.0)
[2018-11-09 11:22] LABS: BUN Creatinine Ratio 13.2 (10-20); Calcium 8.2 mg/dl (8.5-10.1); Creatinine Clr Calc Pharmacy 66.1 ml/min; Est GFR (African American) 97.6; Est GFR (Non-African American) 84.2; Potassium 3.8 mmol/L (3.5-5.1)
--- NOTE | 2018-11-09 17:48 | Hospitalist Progress Note ---
Date of Service November 09, 2018 Assessment & Plan (1) Status post lumbar surgery: POD # 3. Not feeling well today, but no specific symptoms. Vital signs and labs OK. (2) Hypothyroidism: Continue levothyroxine. (3) DVT prophylaxis: Per Ortho protocol. (4) Encounter for consultation: Thank you for this consultation. We will follow the patient with you during their hospital stay. My cell # is [phone]. You can reach a member of the [facility] Medicine Team 18/12 via pager @ [phone]. Subjective Recheck for perioperative medical management. Patient seen in their room around 1010. visiting. Does not feel well. Feels very tired, but no specific symptoms. Lumbar drain removed. Took acetaminophen and tramadol for postoperative pain this morning. Review of Systems: Constitutional- no fever. Cardiac- no chest pain. Pulmonary- no cough or SOB. GI- no nausea, vomiting, diarrhea, melena, hematochezia. - no urinary symptoms. Otherwise, as noted above. Physical Exam Constitutional: no acute distress Respiratory: no respiratory distress Auscultation: lungs clear to auscultation bilaterally Cardiovascular: Rate/Rhythm: regular rate and regular rhythm Heart Sounds: no gallop, no murmur and no cardiac rub Vessels: no JVD Extremities: no calf tenderness and no edema Gastrointestinal (Abdomen): normal bowel sounds, soft, nontender, no hepatosplenomegaly Skin: no rashes, warm and dry Psychiatric: Orientation: alert and oriented x 3 Results & Data Vital Signs (Past 12 Hours) Vital Signs Temp Pulse Pulse Resp BP Pulse Ox 11/09/18 15:25 36.7 C 86 18 128/77 90 11/09/18 11:18 36.8 C 81 15 113/67 94 11/09/18 06:10 37.0 C 90 16 112/70 93 Laboratory Results Laboratory Results - last 24 hr 11/09/18 11/09/18 11/09/18 05:39 05:39 10:45 WBC 9.39 RBC 3.12 L Hgb 9.5 L 9.5 L Hct 28.5 L 28.4 L MCV 91.3 MCH 30.4 MCHC 33.3 RDW Std Deviation 45.5 RDW Coeff of Kyala 13.7 Plt Count 186 MPV 8.1 Sodium 140 Potassium 3.8 Chloride 105 Carbon Dioxide 29 Anion Gap 6.0 BUN 10 Creatinine 0.72 Est Cr Clr Drug Dosing 61.5 Est GFR ( Amer) 93.0 Est GFR (Non-Af Amer) 80.2 BUN/Creatinine Ratio 13.2 Glucose 97 Calcium 8.2 L 11/09/18 10:45 WBC RBC Hgb Hct MCV MCH MCHC RDW Std Deviation RDW Coeff of Kayla Plt Count MPV Sodium 139 Potassium 3.8 Chloride 105 Carbon Dioxide 30 Anion Gap 4.0 BUN 9 Creatinine 0.67 Est Cr Clr Drug Dosing 66.1 Est GFR ( Amer) 97.6 Est GFR (Non-Af Amer) 84.2 BUN/Creatinine Ratio 13.2 Glucose 89 Calcium 8.2 L
[2018-11-09] MEDS: DOCUSATE SODIUM/SENNA 50/8.6MG TAB PO SCH (20:00)
[2018-11-09] MEDS: MONTELUKAST SODIUM 10 MG TABLET PO SCH (20:00)
[2018-11-10] MEDS: TRAMADOL HCL 50 MG TABLET PO PRN ×6 (04:16→23:58)
[2018-11-10] MEDS: LEVOTHYROXINE SODIUM 25 MCG TABLET PO SCH (05:30)
--- NOTE | 2018-11-10 07:23 | Orthopedic Progress Note ---
Date of Service November 10, 2018 Assessment & Plan (1) Spinal stenosis: At this point patient is feeling much better. We will continue with physical therapy and occupational therapy. We will continue GI DVT prophylaxis as well as pain control measures. Is possible she will be ready for home discharge tomorrow depending on how she does today. Subjective Patient is seen postop day #4 status post lumbar decompression fusion. She had a rough day yesterday however today she is feeling much better. She is not having any pain going down the legs and no perceived weakness. She is tolerating food without difficulties. She is not having any abdominal discomfort. She denies any other numbness, tingling, or paresthesias. Physical Exam Physical Exam: On exam she is alert and oriented. She is nontender in the abdomen. Her calves are supple nontender. Her dressing is clean dry and intact. Strength and sensation both intact gait was not observed. Results & Data Vital Signs (Past 12 Hours) Vital Signs Temp Pulse Resp BP Pulse Ox 11/09/18 23:25 37 C 99 H 18 108/63 93
[2018-11-10] MEDS: ACETAMINOPHEN 500 MG TAB PO PRN ×3 (08:14→23:59)
[2018-11-10] MEDS: FLUTICASONE PROPIONATE NA SPR 16 GM BTL SCH (08:15)
[2018-11-10] MEDS: CETIRIZINE HCL 10 MG TABLET PO SCH (08:15)
--- NOTE | 2018-11-10 17:59 | Hospitalist Progress Note ---
Date of Service November 10, 2018 Assessment & Plan (1) Status post lumbar surgery: POD # 4. Rough day yesterday, but better today. Increase activity as tolerated. (2) Hypothyroidism: Continue levothyroxine. (3) DVT prophylaxis: Per Ortho protocol. (4) Encounter for consultation: Thank you for this consultation. We will follow the patient with you during their hospital stay. My cell # is [phone]. You can reach a member of the [facility] Medicine Team 18/12 via pager @ [phone]. Subjective Recheck for medical management. Patient seen in her room around 12:00. Feels better today. No chest pain, cough, SOB, nausea, vomiting. Passing flatus and stool. Voiding without difficulty. Pain well-controlled. Physical Exam Constitutional: no acute distress Respiratory: no respiratory distress Auscultation: lungs clear to auscultation bilaterally Cardiovascular: Rate/Rhythm: regular rate and regular rhythm Heart Sounds: no gallop, no murmur and no cardiac rub Vessels: no JVD Extremities: no calf tenderness and no edema Gastrointestinal (Abdomen): normal bowel sounds, soft, nontender, no hepatosplenomegaly Skin: no rashes, warm and dry Psychiatric: Orientation: alert and oriented x 3 Results & Data Vital Signs (Past 12 Hours) Vital Signs Temp Pulse Resp BP BP Pulse Ox 11/10/18 15:12 103/65 11/10/18 15:10 36.9 C 84 16 90/49 L 94
[2018-11-10] MEDS: DOCUSATE SODIUM/SENNA 50/8.6MG TAB PO SCH (20:02)
[2018-11-10] MEDS: MONTELUKAST SODIUM 10 MG TABLET PO SCH (20:07)
[2018-11-11] MEDS: TRAMADOL HCL 50 MG TABLET PO PRN ×3 (04:00→12:18)
[2018-11-11] MEDS: LEVOTHYROXINE SODIUM 25 MCG TABLET PO SCH (06:01)
[2018-11-11] MEDS: ACETAMINOPHEN 500 MG TAB PO PRN (08:02)
[2018-11-11] MEDS: CETIRIZINE HCL 10 MG TABLET PO SCH (08:03)
[2018-11-11] MEDS: FLUTICASONE PROPIONATE NA SPR 16 GM BTL SCH (08:03)
--- NOTE | 2018-11-11 11:41 | Discharge Summary ---
Date of Service November 11, 2018 Admission HPI Per Admitting Provider This is a 78-year-old female who presents with worsening back and bilateral leg pain failing extensive course of nonoperative care she is here for surgical intervention. Principal Diagnosis Lumbar spinal stenosis with neurogenic claudication Discharge Data Allergies Allergy/AdvReac Type Severity Reaction Status Date / Time cefaclor Allergy Intermediate HIVES Verified 11/06/18 09:17 Penicillins Allergy Intermediate SWELLING Verified 11/06/18 09:17 red dye Allergy Intermediate hives Verified 11/06/18 09:17 shellfish derived Allergy Intermediate Hives Verified 11/06/18 09:17 hydrocodone Allergy Mild N/V Verified 11/06/18 09:17 meperidine Allergy Unknown WAS TOLD Verified 11/06/18 09:17 NEVER TO TAKE IT apple Allergy Hives Verified 11/06/18 09:17 broccoli Allergy Hives Verified 11/06/18 09:17 grape Allergy Hives Verified 11/06/18 09:17 morphine AdvReac Intermediate PROJECTILE Verified 11/06/18 09:25 VOMITTING oxycodone AdvReac Intermediate N/V Verified 11/06/18 09:17 MEDICAL GRADE GLUE Allergy Intermediate VEIN Uncoded 11/06/18 09:17 IRRITATION, RED/SWOLLEN mesquite trees Allergy Intermediate Unknown Uncoded 11/06/18 09:17 Consultations 11/06/18 14:32 Consult Case Management - Discharge Planning Routine Consult Hospitalist Routine Procedures Performed Operation Date: 11/06/18 10:25 Actual Procedures p L3-L5 Decompression and Fusion, Spinal Cord Monitoring(Not Applicable) - Solomon Terry, Ordered Studies 11/06/18 10:25 FL fluoroscopy <1hr Routine FL lumbar spine 2-3V Routine Hospital Course (1) Spinal stenosis: Patient underwent multilevel lumbar decompression fusion tolerated this well was taken to the orthopedic floor postoperative. Postop day 1 she is up and ambulating. She progressed appropriately throughout her hospital stay JESSE drain decreasing nicely. Bowels working well. Subsequently discharged home. Discharge orders and instructions from the chart for further review. Total Time Total Time Spent Total Time Spent (In Minutes): 20 minutes Discharge Plan Discharge Items Patient Disposition: Home - Self-Care Reason For Visit: LUMBAR SPINAL STENOSIS W/OUT NEUROGENIC CLAUDICATI Discharge Diagnosis: Lumbar spinal stenosis with neurogenic claudication Discharge Goals: Improve function Activity: Per 'Additional Instructions' section Non-emergency contact: Primary Care Provider Call non-emergency contact if: you have any medication questions Follow-up/Referrals: Kennedy Messina [Primary Care Provider] - Diet: Regular Addtl Provider Instructions: ACTIVITY RECOMMENDATIONS: SELF CARE INSTRUCTIONS AFTER THORACIC/LUMBAR FUSIONS 1. You may walk to your tolerance. It is good exercise for your legs and back. Expect some back and intermittent leg aches and pains. 2. You may perform "counter-top" level activities (make a sandwich, morris with a project, etc.). 3. No bending or lifting of more than 10 pounds or back twisting of any nature (roll like a log when turning in bed). 4. You may ride in a car for 20-30 minutes at a time. No driving until after your first visit with your doctor. 5. Frequent changes of position and restricting sitting to 30 minutes at a time will help limit the amount of back spasms and stiffness you may experience. 6. You may discontinue the use of ambulatory aids (cane, crutches, etc.) once your strength and confidence allow. 7. You may materials engineering technician the shower and let water strike your incision when you arrive home at least once daily. Do not take a tub bath, sit in a hot tub or go into a swimming pool until after your first recheck in the office. SPECIAL CARE INSTRUCTIONS: VERY IMPORTANT TO READ AND REVIEW A. Your surgical incision has been closed with a cosmetic suture under the skin that will dissolve in about 6 weeks. In 14 days, you can use a pair of clean scissors and cut the suture that is left outside of the skin at the ends of your incision. 1. The small skin tapes can be removed 7 days after surgery if they have not fallen off by that point. 2. You may keep the wound open to air as much as possible to promote healing after post-op day number 5 unless told otherwise by your doctor. 3. If you think the wound looks like it is becoming infected (redness or worsening drainage) and/or you are experiencing fever, chill or worsening back pain and muscle spasms, contact the office so that we may evaluate you as soon as possible. B. Complications are uncommon, but please contact us if you have any signs or symptoms of: 1. wound infection (fever higher than 102.5 degrees F, redness, separation of wound, drainage, or increasing pain from the incision) 2. blood clots in legs (pain, swelling, redness and warmth in legs) 3. urinary tract infection (fever higher than 102.5 degrees F, burning upon urination or increased frequency of urination) 4. nerve problems (inability to walk on your toes or heels, numbness, loss of bowel or bladder control) 5. any other symptoms that concern you C. Please call the office at if you have any concerns or questions about your operation or recovery. D. No smoking! Smoking drastically decreases the chance of a solid fusion. E. Do not take any anti-inflammatory medications (Indocin, Advil, Motrin, Aspirin, Naprosyn, etc.) as these may inhibit the chance of a solid fusion. Tylenol is okay to take for pain. MANAGING PAIN AFTER SPINAL SURGERY 1. Narcotic medication is intended for short-term use and will be provided for surgical pain. Surgical pain usually lasts for a period of 4-6 weeks. Narcotic medication includes Percocet, Vicodin, Darvocet, Tylenol #3 or Lortab. 2. Longer-term pain is more appropriately treated with non-narcotic medication such as Tylenol ES. 3. Muscle spasm is not appropriately treated with narcotics. Muscle relaxers such as Soma, Flexeril or Skelaxin can be used along with Tylenol ES. 4. Remember that we all live with some "aches and pains". This is not unusual or uncommon after an injury or as we get older. a. Back pain is expected and may include muscle spasms for 4 to 6 weeks after surgery. The pain should gradually improve. If the pain worsens for no apparent reason, please contact the office. b. Intermittent leg pain may also be experienced and should not be concerned about unless it worsens for no apparent reason. If so, please contact the office. 5. We will provide appropriate medication within the normal guidelines of their prescribed use. We will also be very cautious and aware of potential abuse and extended duration of patients' medication needs. a. Pain medications are for your comfort and to assist with sleep and rest so that the tissue can heal. They are not provided in order to return to normal activity and should not be used through the day. To do so or worsening pain at night can result from ongoing tissue damage and development of tolerance to the prescribed medicine. 6. Please allow 2-3 days to process refills. Prescriptions will not be mailed but must be picked up at the office. FOLLOW UP VISIT: Keep your scheduled follow-up appointment. Any questions, please call the office at . Prescriptions: New tramadol 50 mg Tablet 50 mg PO Q4H PRN (Reason: Pain) Qty: 30 RF: 0 Continued cetirizine [Zyrtec] 10 mg Tablet 10 mg PO QAM RF: 0 levothyroxine 25 mcg Tablet 25 mcg PO QAM RF: 0 montelukast [Singulair] 10 mg Tablet 10 mg PO PM RF: 0 fluticasone propionate [Flonase Allergy Relief] 50 mcg/actuation Stevenson,Suspension 1 spray INTRANASAL DAILY RF: 0 carisoprodol 250 mg Tablet 250 mg PO BID RF: 0 acetaminophen [Tylenol Extra Strength] 500 mg Tablet 500 mg PO Q6H PRN (Reason: Pain) RF: 0 docusate sodium [Stool Softener] 100 mg Capsule 100 mg PO DAILY PRN (Reason: Constipation) RF: 0 Stand-Alone Forms: [employer], Opioid Pain Management [facility]/Other Patient Handouts: Back How Works, Back Pain Relieve, Safety Back Bending, Safety Back Lifting, Safety Back Push Pull, Safety Back Sleep Pos, Safety Back Sit, Safety Back Stand, Safety Back Turning, Laminectomy Discharge Orders: Discharge Order (Routine); Ordered 11/11/18 Ordered By: Solomon Terry Admission Data Admit Date/Time: 11/06/18 14:14 Attending Provider: Solomon Terry Admit Provider: Solomon Terry Primary Care Provider: Kennedy Messina Other Providers: Joey Crowe Service: Medical Other Interventions: Discharge Summary Assessment (RN) Last Done: 11/11/18 09:51
== END 2018-11-11 13:36 | disposition home or self-care (01) | DRG 455 ==
LOC: ASU 08:50 → 3E 14:14